=== PATIENT | female | born 2005 | race Caucasian/White ===

== ENCOUNTER → 2023-06-28 13:47 | Outpatient (REF) | payer BC, SELFPAY | LOC: MRI 3T 13:47 | PROVIDERS: ATTENDING PHYSICIAN Orthopaedic Surgery Hand Surgery | DX: M25.532 Pain in left wrist (principal) | CPT/HCPCS: 73221 ==

== ENCOUNTER 2023-11-02 08:02 | Emergency (ER) | payer BC, SELFPAY ==
[2023-11-02 08:12] VITALS: BP 117/88
[2023-11-02 09:26] LABS: % Basophils 0.4 % (0-2); % Eosinophils 0.4 % (0-6); % Immature Granulocytes 0.2 % (0-0.5); % Lymphocytes 29.2 % (20.5-51.1); % Monocytes 6.2 % (1.7-9.3); % Neutrophils 63.6 % (42.2-75.2); Absolute Lymphocytes 1.3 10^3/uL (1.2-3.4); Absolute Monocytes 0.3 10^3/uL (0.1-0.6); Absolute Neutrophils 2.9 10^3/uL (1.4-6.5); Mean Corp Hgb Conc. 35.1 g/dL (33.0-37.0); Mean Corpuscular Hgb 29.1 pg (27.0-31.0); Mean Corpuscular Volume 82.8 fL (81.0-99.0); Mean Platelet Volume 9.6 fL (7.4-10.4); Nucleated Red Blood Cells % 0 %; Platelet Count 186 10^3/uL (130-400); Red Blood Cell Count 4.47 10^6/uL (4.20-5.40); Red Cell Dist. Width 12.4 % (11.5-14.5); White Blood Cell Count 4.5 10^3/uL (4.8-10.8)
[2023-11-02 09:38] LABS: ALT (SGPT) 15 U/L (0-35); AST (SGOT) 22 U/L (14-36); Albumin 4.5 g/dl (3.5-5.0); Alkaline Phosphatase 54 U/L (38-126); Blood Urea Nitrogen 9 mg/dl (7-17); Calcium 9.6 mg/dl (8.4-10.2); Carbon Dioxide 25 mmol/L (22-30); Chloride 104 mmol/L (98-107); Glucose 84 mg/dl (70-99); Potassium 4.1 mmol/L (3.5-5.1); Sodium 138 mmol/L (135-145); Total Bilirubin 1.6 mg/dl (0.2-1.3); Total Protein 7.1 g/dl (6.3-8.2); eGFR > 60.00
[2023-11-02 09:49] LABS: Troponin I < 0.012 ng/ml
--- NOTE | 2023-11-02 10:01 | ED.GENMED ---
History of Present Illness
General
Chief Complaint: Chest Pain
Source: patient
Time Seen by Provider: 11/02/23 09:33
History of Present Illness
History of Present Illness:
18-year-old female with past medical history of anxiety and depression presenting to the emergency department for evaluation of a multitude of symptoms that been ongoing for the last few weeks, noting worsening headache, chest discomfort, nausea,
decreased p.o. intake over the last 2 to 3 days. She has been taking Advil intermittently with relief of symptoms but then after Advil starts to wear off symptoms will come back. Father notes that about 3 weeks ago patient did have a sore throat
and some mild URI-like symptoms that have since subsided. No known sick contacts, recent travel or recent antibiotics. Patient social history was noncontributory. Family history was noted for mother having migraines and anxiety as well.
Past History
Past History
ED Past Medical History: Asthma, Psychiatric (Anxiety, Depression) and Other (IBS)
ED Past Surgical History: Orthopedic (Left knee surgery)
Social History
Tobacco: Former smoker
Alcohol: Occasional
Drug: None
Personal: Single
Living: with family
Employment: Student
Review of Systems
Review of Systems
All Other Systems: ROS reviewed and negative except as documented in HPI and ROS
Phy Exam
Physical Exam
Physical Exam:
GENERAL: Alert , in no apparent distress
EYE: clear conjunctiva b/l
HEAD: NCAT
ENT: o/p clr, mmm. No tonsillar edema or exudates
CARDIAC: Regular rate and rhythm .
LUNGS: Clear breath sounds bilaterally, no acute respiratory distress, no wheezes/rales/rhonchi
ABDOMEN: Soft, without focal tenderness, no r/g, no cvat, no hepatosplenomegaly
NEUROLOGICAL: Alert and oriented
SKIN: Warm and dry, skin intact.
MUSCULOSKELETAL: well perfused.
PSYCH: Normal and appropriate interaction.
Scores
Heart Failure Risk
Heart Failure Risk Score: Not Applicable
Heart Score for Chest Pain Patients
STEMI patient?: Not applicable
Withdrawal Assessment of Alcohol
Withdrawal Assessment Completed?: Not applicable
Course
Orders/Labs/Results
Orders:
Orders
11/02/23 08:16
Electrocardiogram (*1) Urgent
Reason for Study: Chest Pain
EKG- Treatment ONCE
11/02/23 09:17
Complete Blood Count/With Diff Urgent
Comprehensive Metabolic Panel Urgent
HCG, Serum Qualitative Screen Urgent
Comment: ADD ON
Monotest Urgent
Comment: ADD ON
TSH Urgent
Comment: ADD ON
Troponin I Urgent
11/02/23 09:49
Add On- LAB Urgent
Tests Added?: TSH, monotest
0.9% Sodium Chloride 1000 ml [Nss] 1,000 ml IV BOLUS
Ondansetron Injectable [Zofran] 4 mg IV NOW STA
11/02/23 10:09
Add On- LAB Urgent
Tests Added?: hcg qual
Abnormal Lab Results
11/02/23
09:17
WBC 4.5 L 10^3/uL
(4.8-10.8)
Total Bilirubin 1.6 H mg/dl
(0.2-1.3)
11/02/23 09:17
11/02/23 09:17
Vital Signs
Initial and Last Documented VS:
Initial Vital Signs
Temp Pulse Resp BP Pulse Ox
98.1 F 77 20 117/88 100
11/02/23 08:12 11/02/23 08:12 11/02/23 08:12 11/02/23 08:12 11/02/23 08:12
Last Documented Vital Signs
Temp Pulse Resp BP Pulse Ox
98.1 F 77 20 117/88 100
11/02/23 08:12 11/02/23 08:12 11/02/23 08:12 11/02/23 08:12 11/02/23 08:12
MDM/Problems Addressed
Differential Diagnosis Includes:
Viral syndrome, electrolyte disturbance
MDM/Problems Addressed:
18-year-old female presenting to the emergency department for evaluation of a multitude of symptoms that been occurring over the last 3 weeks, the last 2 days she has had worsening headache, nausea and generally feeling unwell. Patient is
hemodynamically stable and in no acute distress. Labs have been initiated in triage. Patient had a noted leukopenia which would correlate with a possible viral infection. Monoscreen added. Patient also had noted to me that about a year or so ago
she had blood work done which showed a abnormal thyroid study so I also added on a TSH to her lab work.
*Pulse Oximetry
Patient hypoxic: no
*Critical Care Note
Total Time (30-74mins, 75-104mins- exclusive of procedures): Not Applicable
Data Reviewed
Review of Other/Old Records Reveals: Labs (Patient has had mild leukopenia as before on previous labs with most recent being in September 2022)
Patient Management
Escalation/DeEscalation of care consider admission/obs:
Patient's workup is largely unremarkable. Monotest is negative, test negative and TSH is within normal limits. I suspect symptoms are still most likely related to a viral syndrome. Urged close follow-up with primary care provider.
Aware of return precautions to the emergency room
ED Attending Note
-
Portions of this chart may have been created with voice recognition software.� Occasional wrong word or��sound alike� substitutions may have occurred due to the inherent limitations of voice recognition software.
Discharge Plan
Departure
Patient Disposition: Home (Routine Discharge)
Date of Disposition: 11/02/23
Time of Disposition: 12:27
Patient with high blood pressure during this ER visit?: No
Discharge Problem:
Fatigue
Instructions: Fatigue (DC)
Prescriptions:
New
ondansetron 4 mg tablet,disintegrating
4 mg PO TIDPRN PRN (Reason: nausea/vomiting) Qty: 10 0RF
No Action
albuterol sulfate 1 PUFF HFA aerosol inhaler
1 puff inhalation PRN PRN (Reason: before gym, activity)
ibuprofen 400 MG tablet
400 mg PO PRN PRN (Reason: DEVINE)
levalbuterol HCl [Xopenex] 1.25 MG/3 ML solution for nebulization
1.25 mg IH PRN PRN (Reason: wheezing)
budesonide-formoterol [Symbicort] 1 PUFF HFA aerosol inhaler
2 puff inhalation R BID
Control
1 dose PO DAILY
prednisolone sodium phosphate 15 MG/5 ML solution
30 mg PO DAILY Qty: 50 0RF
amoxicillin-pot clavulanate 875-125 mg tablet
1 tab PO BID Qty: 13 0RF
ondansetron 4 mg tablet,disintegrating
4 mg PO Q8H PRN (Reason: nausea and vomiting) Qty: 7 0RF
Referrals:
Jorge Alberto oHwell MD [Family Provider] -
Interventions
Interventions:
*Risk Screen - Suicide Last Done: 11/02/23 08:12
*General Assessment Last Done: 11/02/23 08:12
*Neglect/Abuse Screening Last Done: 11/02/23 08:12
ED- Fall Risk Assessment Last Done: 11/02/23 10:00
*ED COVID-19 Vaccine History Last Done: 11/02/23 10:00
*Nursing Disposition Last Done: 11/02/23 12:59
ED- Cardiac Assessment Last Done: 11/02/23 10:40
Discharge Date and Time
Discharge Date/Time: 11/02/23 12:59
Print Language: JAPANESE
[2023-11-02] MEDS: NSS 1000 IV (10:05)
[2023-11-02] MEDS: ZOFRAN 4 MG IV (10:06)
[2023-11-02 10:21] LABS: HCG, Serum Qualitative Screen Negative
[2023-11-02 11:01] LABS: TSH 1.22 uIU/ml (0.47-4.68)
[2023-11-02 11:56] LABS: Monotest Negative (Negative)
== END 2023-11-02 12:59 | disposition home or self-care (01) ==
LOC: EMR 08:02
PROVIDERS: Emergency Medicine; EMERGENCY PHYSICIAN Emergency Medicine; FAMILY PHYSICIAN Pediatrics
DX: R53.83 Other fatigue (principal); R51.9 Headache, unspecified; R07.89 Other chest pain; R11.0 Nausea; F41.9 Anxiety disorder, unspecified; F32.A Depression, unspecified; K58.9 Irritable bowel syndrome, unspecified; J45.909 Unspecified asthma, uncomplicated; Z87.891 Personal history of nicotine dependence; Z88.8 Allergy status to other drugs, medicaments and biological substances
CPT/HCPCS: 99284; 96374; 96361 ×3; 80053; 84443; 84484; 84703; 85025; 86308; 93005

== ENCOUNTER → 2024-03-13 13:19 | Outpatient (REF) | payer BC, SELFPAY | LOC: HWRAD 13:19 | PROVIDERS: ATTENDING PHYSICIAN Nurse Practitioner Pediatrics | DX: R10.2 Pelvic and perineal pain (principal) | CPT/HCPCS: 76830; 76856 ==

== ENCOUNTER 2024-12-24 11:13 | Emergency (ER) | payer BC, SELFPAY ==
[2024-12-24 11:16] VITALS: BP 119/73
--- NOTE | 2024-12-24 12:24 | ED.SKININJ ---
HPI-Injury
General
Chief Complaint: Skin Problem
Source: patient
Exam Limitations: none
Time Seen by Provider: 12/24/24 11:52
Nursing documentation reviewed up to this point in time: agreed with
History of Present Illness-Injury
Initial Injury comments:
19-year-old female states she was out in the sun for 6 hours straight yesterday and developed sunburn on her face and chest. She states she noted tiny blisters on her forehead and nose today. She states her face has been uncomfortable but not
significantly painful.
Past History
Past History
ED Past Medical History: Asthma, Psychiatric (Anxiety, Depression) and Other (IBS)
ED Past Surgical History: Orthopedic (Left knee surgery)
Social History
Tobacco: Former smoker
Alcohol: Occasional
Drug: None
Personal: Single
Living: with family
Employment: Student
Review of Systems
Review of Systems
Allergies reviewed?: Yes
All Other Systems: ROS reviewed and negative except as documented in HPI and ROS
Skin: Reports other (sunburn)
Phy Exam
Physical Exam
Physical Exam:
GENERAL: No acute distress. A&Ox3.
CONSTITUTIONAL: Afebrile.
EYES: clear, conjunctivae normal
ENMT: moist mucus membranes
RESPIRATORY: Regular respirations, nonlabored, lungs clear.
CARDIOVASCULAR: Regular rate and rhythm, no murmurs, no rubs.
MUSCULOSKELETAL: Moves with ease. Well perfused.
SKIN: Warm, dry, pink. First degree sunburn of face and chest, perhaps mild 2nd degree with minute blisters forehead and nose, no significant blistering.
PSYCH: Normal mood and affect. Well kept, interactive and appropriate
NEUROLOGIC: Awake, alert and oriented. No focal neurological deficits
Course
Orders/Labs/Results
Orders:
Orders
12/24/24 12:18
Dexamethasone [Decadron] 10 mg PO NOW STA
Vital Signs
Initial and Last Documented VS:
Initial Vital Signs
Temp Pulse Resp BP Pulse Ox
97.4 F 92 16 119/73 98
12/24/24 11:16 12/24/24 11:16 12/24/24 11:16 12/24/24 11:16 12/24/24 11:16
Last Documented Vital Signs
Temp Pulse Resp BP Pulse Ox
97.4 F 92 16 119/73 98
12/24/24 11:16 12/24/24 11:16 12/24/24 11:16 12/24/24 11:16 12/24/24 12:31
MDM/Problems Addressed
Differential Diagnosis Includes:
1st vs 2nd degree sunburn, photodermatitis.
MDM/Problems Addressed:
19-year-old female states she was out in the sun for 6 hours straight yesterday and developed sunburn on her face and chest. She states she noted tiny blisters on her forehead and nose today. She states her face has been uncomfortable but not
significantly painful.
No significant blistering.
One dose Decadron given, otherwise treat as sunburn
Mostly first-degree sunburn, tiny blisters on forehead and nose may be second-degree sunburn. No peeling of skin, no significant blistering
*Pulse Oximetry
SaO2: 98
Oxygen Mode of Delivery: Room air
Patient hypoxic: not evaluated
*Critical Care Note
Total Time (30-74mins, 75-104mins- exclusive of procedures): Not Applicable
ED Attending Note
-
Portions of this chart may have been created with voice recognition software.� Occasional wrong word or��sound alike� substitutions may have occurred due to the inherent limitations of voice recognition software.
Discharge Plan
Departure
Patient Disposition: Home (Routine Discharge)
Date of Disposition: 12/24/24
Time of Disposition: 12:18
Patient with high blood pressure during this ER visit?: No
Condition: Good
Discharge Problem:
Sunburn of first degree
Instructions: Sunburn (DC), Staying safe in the sun
Prescriptions:
No Action
albuterol sulfate 1 PUFF HFA aerosol inhaler
1 puff inhalation PRN PRN (Reason: before gym, activity)
ibuprofen 400 MG tablet
400 mg PO PRN PRN (Reason: DEVINE)
levalbuterol HCl [Xopenex] 1.25 MG/3 ML solution for nebulization
1.25 mg IH PRN PRN (Reason: wheezing)
budesonide-formoterol [Symbicort] 1 PUFF HFA aerosol inhaler
2 puff inhalation R BID
Control
1 dose PO DAILY
prednisolone sodium phosphate 15 MG/5 ML solution
30 mg PO DAILY Qty: 50 0RF
amoxicillin-pot clavulanate 875-125 mg tablet
1 tab PO BID Qty: 13 0RF
ondansetron 4 mg tablet,disintegrating
4 mg PO Q8H PRN (Reason: nausea and vomiting) Qty: 7 0RF
ondansetron 4 mg tablet,disintegrating
4 mg PO TIDPRN PRN (Reason: nausea/vomiting) Qty: 10 0RF
Referrals:
Benjy Sandhu III, DO [Family Provider, Pediatrics] - As needed
Activity Restrictions/Additional Instructions:
As we discussed, you have sunburn, it is mostly first-degree, if the blisters are notable, it can be mild second-degree.
Ibuprofen 600 mg, with food, every 6 hours as needed for pain. Cool compresses 20 minutes off-and-on the rest of today may help minimize any further blistering.
You were given a dose of Decadron here today, this is a steroid which may help with some of the inflammation and discomfort
Interventions
Interventions:
*Risk Screen - Suicide Last Done: 12/24/24 11:17
*Neglect/Abuse Screening Last Done: 12/24/24 11:17
*Nursing Disposition Last Done: 12/24/24 13:00
ED-Skin Assessment Last Done: 12/24/24 12:14
Discharge Date and Time
Discharge Date/Time: 12/24/24 13:00
Print Language: WOLOF
[2024-12-24] MEDS: DECADRON 10 MG PO (12:36)
== END 2024-12-24 13:00 | disposition home or self-care (01) ==
LOC: EMR 11:13
PROVIDERS: EMERGENCY PHYSICIAN Student in an Organized Health Care Education/Training Program; FAMILY PHYSICIAN Student in an Organized Health Care Education/Training Program
DX: L55.0 Sunburn of first degree (principal); J45.909 Unspecified asthma, uncomplicated; K58.9 Irritable bowel syndrome, unspecified; F41.9 Anxiety disorder, unspecified; F32.A Depression, unspecified; Z87.891 Personal history of nicotine dependence
CPT/HCPCS: 99283